=== PATIENT | female | born 1945 | race Caucasian/White ===

== ENCOUNTER → 2016-06-16 | Outpatient (CLI) | payer MEDICARE, OTHER ==
[~2016-06-16] MED LIST: ALLO300T74 PO; AMLO10TA57 PO; ASPI-730 PO; BENA40TA PO; CALC-652 PO; CETI10CA19 PO; COLC0.6T54 PO; FAMO40TA PO; FISH OIL PO; FLUT16SP12 EA NOSTRIL; FLUT1DIS4 INH; GADOBUTROL 10mMol/10ml INJECTION IV ONE; GEMF600T26 PO; GLYB1TAB47 PO; HYDR-2164 PO; INSU100V28 SQ; METF-47 PO; NITR-29 PO; NORMAL SALINE 50 ML IV ONE; POTA10CA32 PO; SALINE FLUSH 10ml SYRINGE ONE; [UNRECOGNIZED DRUG - CODE] PO
--- NOTE | 2016-06-20 08:49 | DI ---
Indication: ITS.REASON: C80.1 Malignant (primary) neoplasm, unspecified; C78.02 PROCEDURE: MRI BREAST BILATERAL W/WO CON: Encounter: Initial Comparison: Chest CT dated May 27, 2016 Technique: Multiplanar multisequence MR imaging of both breasts was performed with and without contrast utilizing a dedicated breast coil. Dynamic postcontrast imaging was obtained and reviewed on a standalone [employer] workstation. Contrast: 15 mL Gadavist Findings: Left lung consolidation and mass is incompletely evaluated on this study. There is no obvious evidence of chest wall invasion. No pathologically enlarged axillary or internal mammary lymph nodes identified. There is mild background parenchymal enhancement in both breasts without enhancing mass. No concerning area of nonmass-like enhancement seen. Impression: No MR evidence of breast malignancy. BI-RADS 1: Negative .
== END ==
LOC: IMA 09:17
PROVIDERS: ATTEND Internal Medicine Hematology & Oncology
DX: C80.1 Malignant (primary) neoplasm, unspecified (principal); C78.02 Secondary malignant neoplasm of left lung
CPT/HCPCS: A9585; C8908; J7050; 77059

== ENCOUNTER → 2016-07-19 | Outpatient (CLI) | payer MEDICARE, OTHER ==
[~2016-07-19] MED LIST changes: -GADOBUTROL 10mMol/10ml INJECTION IV ONE; -NORMAL SALINE 50 ML IV ONE; -SALINE FLUSH 10ml SYRINGE ONE
[2016-07-19 10:48] LABS: ALBUMIN 2.9 G/DL (3.5-5.0); ALBUMIN/GLOBULIN RATIO 0.9 RATIO (1.1-2.2); ALKALINE PHOSPHATASE 165 U/L (38-126); ALT (SGPT) 27 U/L (9-52); ANION GAP 12 MEQ/L (5-15); AST (SGOT) 32 U/L (14-36); BUN/CREATININE RATIO 21 RATIO (6-26); CALCIUM 9.4 MG/DL (8.4-10.2); CHLORIDE 104 MEQ/L (98-107); CO2 - CARBON DIOXIDE 28 MEQ/L (22-30); CREATININE 0.7 MG/DL (0.7-1.2); GLOMERULAR FILTRATION RATE 82; GLUCOSE 241 MG/DL (65-110); POTASSIUM 4.1 MEQ/L (3.6-5); SODIUM 144 MEQ/L (134-144)
== END ==
LOC: LABN 10:31
PROVIDERS: ATTEND Internal Medicine Hematology & Oncology
DX: C34.12 Malignant neoplasm of upper lobe, left bronchus or lung (principal)
CPT/HCPCS: 80053

== ENCOUNTER 2016-08-24 12:33 | Inpatient (IN) ==
[2016-09-01] MEDS ORDERED: BISACODYL 10 MG SUPPOSITORY RECTALLY PRN (05:00)
[2016-09-01] MEDS ORDERED: INSULIN REGULAR, HUMAN 100 UNIT/ML INJECTION SQ PRN (05:00)
[2016-09-01] MEDS ORDERED: SALINE 0.65% NASAL SPRAY 44 ML BOTTLE EA NOSTRIL SCH (05:00)
[2016-09-01] MEDS ORDERED: MAG-AL + SIM ORAL LIQUID 30ml PO PRN (05:00)
[2016-09-01] MEDS ORDERED: SALINE FLUSH 10ml SYRINGE IVF PRN (05:00)
[2016-09-01] MEDS ORDERED: ONDANSETRON 4 MG/2 ML INJECTION IVP PRN (05:00)
[2016-09-01] MEDS ORDERED: DEXTROSE 50% SYRINGE 50ml (1 AMP) IVP PRN (05:00)
[2016-09-01] MEDS ORDERED: [UNRECOGNIZED DRUG - OTHER] PO PRN (05:00)
[2016-09-01] MEDS ORDERED: ACETAMINOPHEN 325 MG TABLET PO PRN (05:00)
[2016-09-01] MEDS ORDERED: IPRATROPIUM/ALBUTEROL 2.5mg-0.5mg/3ml NEB AEROSOL PRN (05:00)
[2016-09-01] MEDS ORDERED: NITROGLYCERIN 0.4 MG SUBLINGUAL TABLET SL PRN (05:00)
[2016-09-01] MEDS ORDERED: NS FLUSH BAG 500ml IV PRN (05:00)
[2016-09-01] MEDS ORDERED: GLUCOSE ORAL GEL 40% 37.5gm PO PRN (05:00)
[2016-09-01] MEDS ORDERED: BENZOCAINE 20% ORAL GEL (Max Strength) MM PRN (05:00)
[2016-09-01] MEDS ORDERED: LEVOFLOXACIN 750 MG TABLET PO SCH (06:30)
[2016-09-01] MEDS: IPRATROPIUM/ALBUTEROL 2.5mg-0.5mg/3ml NEB AEROSOL SCH ×2 (07:15→11:13)
[2016-09-01] MEDS ORDERED: CARVEDILOL 12.5 MG TABLET PO SCH (08:00)
[2016-09-01] MEDS ORDERED: METFORMIN 1,000 MG TABLET PO SCH (08:00)
[2016-09-01] MEDS ORDERED: FUROSEMIDE 40 MG TABLET PO SCH (09:00)
[2016-09-01] MEDS ORDERED: ALLOPURINOL 300 MG TABLET PO SCH (09:00)
[2016-09-01] MEDS ORDERED: CALCIUM CARBONATE 600 MG TABLET PO SCH (09:00)
[2016-09-01] MEDS ORDERED: ASPIRIN 325 MG TABLET PO SCH (09:00)
[2016-09-01] MEDS ORDERED: GUAIFENESIN/D-METHORPHAN 600 MG/30 MG TABLET PO SCH (09:00)
[2016-09-01] MEDS ORDERED: BUDESONIDE INH.SOLN 0.5mg/2ml NEB AEROSOL SCH (09:00)
[2016-09-01] MEDS ORDERED: FAMOTIDINE 40 MG TABLET PO SCH (09:00)
[2016-09-01] MEDS ORDERED: LISINOPRIL 2.5 MG TABLET PO SCH (09:00)
[2016-09-01] MEDS ORDERED: INSULIN GLARGINE 100unit/ml INJECTION SQ SCH (09:00)
[2016-09-01] MEDS ORDERED: TBO-FILGRASTIM 480mcg/0.8ml INJECTION SQ SCH (09:00)
--- NOTE | 2016-09-01 09:31 | Discharge Summary ---
Discharge Information Date of admission: 08/24/16 14:29 Anticipated date of discharge: 09/01/16 Attending Physician: Richard Bishop MD Consults: 08/31/16 Pharmacy Consult [CONS] Routine Pharmacy Consult: Vancomycin 08/31/16 14:27 Case Management Consult [CONS] Routine Reason For Exam: Chemo/Radiation 08/31/16 14:28 Physician Consult [CONS] Routine Consulting Provider: Zenon Lombardo Reason For Exam: Afib, RVR (does have sepsis) Ordering Provider has Notified Needle Grader: No - Discharge Diagnosis (1) PNA (pneumonia) Status: Acute (2) HFrEF (heart failure with reduced ejection fraction) Status: Acute (3) Afib Status: Acute (4) HTN (hypertension) Status: Chronic (5) Diabetes Status: Chronic (6) Pancytopenia Status: Acute (7) Lung cancer Status: Chronic - Laboratory Labs: 09/01/16 05:15 09/01/16 05:15 - Microbiology BLood Cx's 08/24 05/05-->Strep PNA Blood Cx's 08/30-->Negative - Radiology Radiology: CXR 08/24 Impression: New lower lobe airspace disease could be due to atelectasis, pneumonia, drug reaction/treatment effect or aspiration with effusions. History of Present Illness HPI: 09/01/16 09:32 Shamika is a 71 year old female who has been experiencing shortness of air and went to see her primary care Dr. mock in the clinic this morning. His assessment revealed patient to be hypoxic and tachycardic. She was sent to [facility] emergency room by EMS for further evaluation and likely admission. In the ER, patient was found to have tachycardia with a heart rate 130 to 144, EKG showed sinus tachycardia. Patient does have a history of PSVT. Patient was tachypnea With respirations of 28-30/m. O2 sat 71% on room air. Patient does not normally wear oxygen. 4 L of oxygen was applied and patient's O2 sats increased to 94%. Blood pressure was 149/64 on intake in the ER. Patient has a history of lung cancer diagnosed 3 months ago. She is currently undergoing radiation and chemotherapy. Went to Dr. Haider office yesterday for chemotherapy but platelets were 47,000 and and subsequently they were not able to provide chemotherapy. Patient has 5 more radiation sessions and one more chemotherapy session for completion of course. Patient additionally had a right sided port placed [address] Cortes. She has not noticed any problems with the port. Patient denies having any fevers. Has had a cough. Has had loss of appetite and general malaise. Labwork was obtained in the emergency room and white count was 5.5, 48% neutrophils with 47% bands. Platelet count 51,000. Lactate elevated at 3.2, pro calcitonin 6.3, total bilirubin 2.3, glucose 267 ( patient is diabetic), BUN 21, creatinine 0.8, CO2 21. Urinalysis showed 1+ bacteria with greater than 1.030 specific gravity, 2+ protein and 2+ bilirubin. Chest x-ray showed new lower lobe airspace disease. Patient is being admitted as an inpatient to the hospitalist service under the care of Dr. Bishop with severe sepsis presumptive healthcare associated pneumonia. Expected length of stay greater than 2 midnights. Hospital Course Hospital course: Detailed day-day hospitalization summary 08/24 Admit patient to inpatient medical unit for hypoxia (sats 71% on room air in ED) , presumptive HCAP. Start Levaquin, Cefepime, and Vanco per pharmacy protocol. Blood cultures sent from ED Repeat lactate for trending. Lactate 3.2 on admit, indicating severe sepsis. O2 at 4 liters on admit to keep sats >90%. Titrate prn. IV boluses for sepsis and maintenance fluids. BP stable on admit. Medical DVT prophylaxis contraindicated due to thrombocytopenia. Plt 51K. No reported extraneous bleeding. 08/25 Feeling slightly better today-less weak/tired. Still SOA and with nonproductive cough. Needing O2. No pain with breathing of cough. No cheat pressure or discomfort. Appetite decreased, but not nausea or ab pain. Does feel up to trying to work with therapy this afternoon. Continue Cefepime, Levaquin, and Vancomycin - check BC C/S for streamlining. Continue Neb Treatments of DuoNeb and budesonide, along with Mucinex DM and acapella. Continue IVF for hydration. Check EKG due to irregularity of HR. Will keep BP medications on hold due to sepsis - monitor blood pressure. PT/OT to see pt this afternoon to help improve functional status. Recheck CBC and CMP in am due to sepsis. EKG did show afib with RVR - will consult Dr Lombardo for treatment modalities. Amiodarone ultimately started - pt transferred to CCU for care and monitoring. Anticipating Cardioversion tomorrow. Dr Lombardo recommends against anticoagulation due to low platelets. 06/26 SOA and congested. Feels working harder to breath-O2 needs increased. Cough is nonproductive. No pain with breathing or chest pain. Appetite decrease, but no nausea or ab pain. Some bloating to ab. Passing flatus, but not able to produce stool. Tired and weak in general. Will change antibiotics to Rocephin 1 gram IV daily. Decrease IVF to 50cc/hr - worry of overload - Lasix 40mg given IV this am. Continue Neb Treatments of DuoNeb and budesonide, along with Mucinex DM and acapella. Amiodarone initiated for afib - anticipate Cardioversion by Dr Lombardo this afternoon. Antihypertensives started by Cardiology - monitor blood pressure and urine output. Recheck CBC and CMP in am due to sepsis. Cardioversion not successful. Dr Lombardo working on rate control. 08/27 Feeling better than yesterday, but breathing still very congested and short. Little cough; no sputum. No chest pressure or pain. Oral drive decreased-sips on Ensure but 1 can will fill her up. Not having nausea or ab pain; some ab bloating. Decreased flatus output. No f/c. Continue Rocephin 1 gram IV daily for antimicrobial coverage. Lasix 40mg IV x1 to help urine output and edema. Cardizem started by cardiology to help rate control - Norvasc stopped. Lisinopril on hold as BP low yesterday. Continue Neb Treatments of DuoNeb and budesonide, along with Mucinex DM and acapella. WBC with decrease to 1.5 - ANC 1185. Monitor for neutropenia. Neupogen if ANC decreases further. Recheck CBC and CMP in am due to sepsis. Will continue CCU monitor overnight - possible transfer to medical floor tomorrow if doing well. 06/28 Breathing improving-less congested. No pain with breathing. Less cough. Not having chest pressure or pain. No stomatitis. Taking in more foods, but appetite still with decrease. Did have stool today. No f/c. Initiate neutropenic precautions - ANC 803. Give GCSF 480mcg SQ x1. Reassess ANC tomorrow for continued dosing. Continue Rocephin 1 gram IV daily for antimicrobial coverage. D/C IVF. Monitor volume status off fluids due to pt's decreased oral drive. Cardizem started by cardiology to help rate control. Lisinopril on hold as BP low. Will continue to hold lisinopril-restarting as BP increase. Continue Neb Treatments of DuoNeb and budesonide, along with Mucinex DM and acapella. PT/OT to reevaluate tomorrow - needs help with strengthening. Recheck CBC, Mg and CMP in am due to sepsis. Will recheck CXR due to pneumonia. Can transfer pt to medical floor on tele. Condition has stabilized. Monitor HR. 08/29 Pt improving. Try to titrate O2 off, change abx to PO levaquin, PT/OT eval. HFrEF likely new dx, diltiazem not ideal med to control rate, will switch over to BB and titirate CCB off. Pt up 5-6 kg since admission, will increase diuretics. Maximize CHF meds-->Statin, ACEI, BB, ASA, Lasix 08/30 Pt doing better. Cont. to titrate O2 off, may need to end up having to go home on O2. Cont. Levaquin, optimize CHF meds, continue to dante crocker/jose ojeda today 08/31 Pt reports she feels like she is still a bit unstable on her feet and would like to go home tomorrow, optimize CHF meds: pt on ACEI, BB, Statin, ASA, diuretics. Will d/c rusty today with bladder training, plan for d/c tomorrow. Brief Hospitalization Summary presented to the hospital with severe sepsis 2/2 PNA. Pt was initially treated with broad spectrum abx but then blood cx's came back positive for strep pna. Pt did better and abx were narrowed based on sensitivities. Repeat blood cx's were negative. Plan is to complete a total of 14 days of abx, pt will need 5 additional days of levaquin on discharge. Pt went into afib in the hospital which was not able to be rhythm controlled even with cardioversion with , pt had no previous hx of afib. Pt's CHADVASC was 5 but had significant thrombocytopenia d/t her chemo tx for lung cancer so no anti- coagulation for now but this discussion needs to be had once platelets stabilize but pt was put on ASA. Echo was done and showed HFrEF with EF 40% which was also a new dx. Medical management was maximized with ACEI, BB, statin , ASA, lasix. Pt was requiring 2L O2 in the hospital that was not able to be titrated off so pt was sent home with O2. Pt also had pancytopenia in the hospital which was likely 2/2 ongoing chemo tx, pt received 2 doses of granix and did well. Pt's counts improved with granix but may need continued tx with it as outpatient as she continues her chemo, discussed with pt that she needs to discuss this with her pcp/oncologist. Discharge Follow up: -Afib-->Discussion of anti-coagulation once platelets increase and stabilize -PNA-->5 days of Levaquin after discharge -CHF-->Daily weights, renal panel early next week to f/u electrolytes since on diuretics -Pancytopenia-->Will likely need GCSF as an outpatient, informed pt to discuss with pcp/oncologist to set up -PCP f/u early next week and oncologist in 1-2 weeks Consultants: -, cardiology Discharge Plan - Med Rec/Dispo Prescriptions: New Carvedilol [Coreg] 12.5 mg PO BIDWM #60 Insulin Glargine,Hum.rec.anlog [Lantus] 25 unit SQ BID #0 vial Levofloxacin [Levaquin] 750 mg PO ACB #5 Lisinopril [Prinivil] 2.5 mg PO DAILY #30 Furosemide [Lasix] 40 mg PO [id number] Atorvastatin [Lipitor] 40 mg PO HS #30 Discontinued Benazepril HCl [Lotensin] 40 mg PO DAILY #0 Furosemide 20 mg PO BID #0 Insulin Glargine,Hum.rec.anlog [Toujeo Solostar] 36 unit SQ BID #0 Amlodipine Besylate 10 mg PO DAILY #0 Aspirin 325 mg PO DAILY #0 Ciprofloxacin HCl 1,000 mg PO DAILY PRN #0 PRN Reason: PRN ORDERS cephALEXin [Cephalexin] 250 mg PO HS #0 No Action Metformin HCl [Glucophage] 1,000 mg PO DAILY #0 Allopurinol 300 mg PO DAILY #0 Cetirizine HCl [Zyrtec] 10 mg PO DAILY #0 Ascorbic Acid [Vitamin C] 1,000 mg PO DAILY #0 Lutein/Zeaxanthin [Lutein-Zeaxanthin 25-5 mg Sfgl] 1 cap PO DAILY #0 SWIZZLE(LIDO/DIPH/GE 15 - 30 ml PO Q4H PRN #0 PRN Reason: PRN ORDERS Potassium Chloride 10 meq PO DAILY #0 Famotidine [Pepcid] 80 mg PO DAILY #0 Calcium Carbonate [Calcium] 600 mg PO DAILY #0 - Disposition 01 Discharged Home, Self-Care
--- NOTE | 2016-09-01 11:13 | Wound Care Progress Note ---
Wound Management - Patient Status Premedicated Prior to Dressing Change: No - Wound Posterior Medial Buttock Wound Type: Moisture Associated Dermatitis Wound Present on Admission?: Yes Drainage Description: Serous Drainage Amount: Scant Dressing Status: Open to Air (Advanced skin protectant applied, pt will follow at the wound clinic next week for another application of skin protectant)
[2016-09-01] MEDS ORDERED: ATORVASTATIN 40 MG TABLET PO SCH (22:00)
== END 2016-09-01 12:20 | disposition home health service (06) | DRG 871 ==
LOC: MED 14:29
PROVIDERS: ADMIT Hospitalist; ATTEND Hospitalist